=== PATIENT | male | born 1945 | race Caucasian/White ===

== ENCOUNTER 2019-03-25 11:35 | Inpatient (IN) ==
[2019-03-25] MEDS ORDERED: NORMAL SALINE 1,000 ML IV ONE ×2 (11:58→13:48)
[2019-03-25] MEDS ORDERED: PANTOPRAZOLE SODIUM 40 MG/100 ML PIGGYBACK IV ONE (11:58)
[2019-03-25 12:22] LABS: Hematocrit 24.5 % (42.0-52.0); Hemoglobin 8.6 gm/dL (13.5-18.0); Mean Cell Volume 95.3 fl (78-100); Mean Corpuscular Hemoglobin 33.5 pg (27-31); Mean Corpuscular Hgb Conc 35.1 g/dl (32-36); Mean Platelet Volume 9.7 fl (8-11.3); Neutrophil # 8.7 K/mm3 (1.3-6.0); Neutrophil % 81.6 % (42-75.0); Platelet Count 242 K/mm3 (150-450); Red Blood Count 2.57 M/mm3 (4.7-6.0); Red Cell Distribution Width 12.2 % (11.5-14.0); White Blood Count 10.6 K/mm3 (4.0-10.5)
[2019-03-25 12:31] LABS: INR 1.01 INR (0.92-1.08)
[2019-03-25 12:43] LABS: Albumin * 3.7 gm/dl (3.4-5.0); Anion Gap 13.8 mmol/L (6.8-13.8); BUN/Creatinine Ratio 18.6 (9.0-21.6); Bilirubin, Total 0.5 mg/dL (0.0-1.1); Ca. Corrected For Albumin 8.5 mg/dL (8.4-10.2); Calcium * 8.6 mg/dL (7.9-10.9); Carbon Dioxide 28.2 mmol/L (24-32.6); Total Protein 6.3 gm/dL (6.2-8.2)
[2019-03-25 13:31] LABS: Urine Bilirubin 1 mg/dl (NEGATIVE); Urine Blood Negative /ul (NEGATIVE); Urine Ketone 5 mg/dL (NEGATIVE); Urine Nitrite Negative (NEGATIVE); Urine Protein 30 mg/dL (NEGATIVE); Urine Specific Gravity >=1.030 SP.GR. (1.005-1.030); Urine Urobilinogen Normal (NORMAL); Urine pH 5.5 pH (5.0-7.0)
[2019-03-25 13:45] LABS: Urine Appearance Slightly Cloudy (CLEAR); Urine Bacteria TRACE; Urine Color Amber; Urine Hyaline Cast >25 /LPF; Urine RBC 0-5 /hpf (0-5); Urine Renal Epithelial Cell Few - 1+ /hpf; Urine WBC 0-5 /hpf (0-5)
--- NOTE | 2019-03-25 14:21 | ERNOTE ---
GI Bleeding/Rectal Pain ER Date of Service: 03/25/19 Presenting Symptoms: rectal bleeding Time Seen by Provider: 03/25/19 11:52 Source: patient Exam Limitations: dementia Immunizations: IMMUNIZATION HX Immunizations Up to Date Yes History of Influenza Vaccine Yes Hx Pneumococcal Vaccination No Allergies/Adverse Reactions: Allergies iodine Allergy (Mild, Verified 03/25/19 12:29) Itching lorazepam [From Ativan] Adverse Reaction (Intermediate, Verified 03/25/19 12:29) Other hallucinations Home Medications: HOME MEDICATIONS Acetaminophen [Tylenol] 500 mg PO Q6H PRN 03/25/19 [Last Taken Unknown] Aspirin 81 mg PO DAILY 03/25/19 [Last Taken Unknown] Carbidopa/Levodopa [Carbidopa-Levodopa 25-250 Tab] 1 ea PO BID 03/25/19 [Last Taken Unknown] Cholecalciferol (Vitamin D3) [Vitamin D3] 2,000 unit PO DAILY 03/25/19 [Last Taken Unknown] Donepezil HCl [Aricept] 10 mg PO HS 03/25/19 [Last Taken Unknown] Felodipine [Felodipine ER] 10 mg PO DAILY 03/25/19 [Last Taken Unknown] Folic Acid 1 mg PO DAILY 03/25/19 [Last Taken Unknown] Indapamide 1.25 mg PO DAILY 03/25/19 [Last Taken Unknown] Lisinopril [Prinivil] 25 mg PO DAILY 03/25/19 [Last Taken Unknown] Melatonin 1 mg PO DAILY 03/25/19 [Last Taken Unknown] Multivit-Mins/Iron/Folic/Lycop [Centrum Men's Tablet] 1 ea PO DAILY 03/25/19 [Last Taken Unknown] Pantoprazole Sodium [Protonix] 40 mg PO DAILY 03/25/19 [Last Taken Unknown] Sucralfate [Carafate] 1 gm PO QID 03/25/19 [Last Taken Unknown] Thiamine HCl [B-1] 100 mg PO DAILY 03/25/19 [Last Taken Unknown] traMADol HCL [Tramadol HCl] 50 mg PO Q6H PRN 03/25/19 [Last Taken Unknown] traZODone HCL [Trazodone HCl] 50 mg PO HS 03/25/19 [Last Taken Unknown] Narrative: patient presents to the ED with . He has been having blood in the stool. This has been going on for a couple of days, BPB and dark stool. He was seen at the [place] [facility] 2 days ago and had HGB 12.1. Today saw Dr Cha and had HGB 8 and was sent here. No vomiting of blood. Has been more confused. No abdominal pain. No fever. He has dementia at baseline that complicates history. Last colonoscopy by report 3 years ago. Denies pain or symptoms right now. Timing: constant Quality/Severity: Present: moderate Nausea/Vomiting: Present: blood Abdominal Pain: Present: none Rectal Bleeding: Present: without stool Associated Symptoms: Reports: black stools. Denies: rectal pain Prior Treament: Reports: recently seen Review of Systems - Review of Systems Constitutional: Absent: fever EYE: Present: no symptoms reported ENT: Absent: sore throat Respiratory: Absent: shortness of breath Cardiology: Absent: chest pain Gastrointestinal/Abdominal: Absent: abdominal pain Genitourinary: Absent: dysuria All Other Systems: All systems neg except as marked Medical History (Last Reviewed 03/25/19 @ 14:15 by Schuyler Billings MD) Hypertension Lewy body dementia Parkinson disease Prostate cancer Surgical History: Surgical History (Last Reviewed 03/25/19 @ 14:15 by Schuyler Billings MD) History of prostatectomy Family History: Family History (Last Reviewed 03/25/19 @ 14:15 by Schuyler Billings MD) Father Myocardial infarction Mother Myocardial infarction Social History: (Last Reviewed 03/25/19 @ 14:15 by Schuyler Billings MD) Social History: household members: spouse parent marital status: current occupational status: employed, retired current occupation: [employer] Highest education level completed: 12th grade, no diploma Tobacco: Smoking Status: Never smoker Alcohol: alcohol intake: never Substance Use: substance use type: does not use Physical Exam - Physical Exam General Appearance: Present: alert, no apparent distress Head Exam: Present: normal inspection, no evidence of injury Eye Exam: Normal inspection: bilateral, PERRL: bilateral Ears, Nose, Throat: Present: normal ENT inspection Neck: Present: normal inspection Respiratory: Present: no respiratory distress, normal breath sounds, no accessory muscle use, lungs clear Cardiovascular/Chest: Present: regular rate, rhythm, normal peripheral pulses Gastrointestinal/Abdominal: Present: normal bowel sounds, nontender, nondistended, soft Rectal Exam: Present: other - No hemorrhoid. Gross blood on RATNA. No masses Back Exam: Absent: CVA tenderness (R), CVA tenderness (L) Extremity Exam: Present: normal range of motion Neurological Exam: Present: alert, no motor/sensory deficits Skin Exam: Present: normal color, warm/dry Progress - Results and Orders Patient's Lab Results:: I have reviewed the patient's lab results. - Vital Signs Patient's Vital Signs:: I have reviewed the patient's vital signs. Vital Signs: Vital Signs 03/25/19 11:53 03/25/19 12:19 03/25/19 12:41 Temperature 36.9 C Pulse Rate 85 87 80 Respiratory Rate 14 14 Blood Pressure 119/59 100/57 O2 Sat by Pulse Oximetry 100 99 03/25/19 13:00 03/25/19 13:30 Temperature Pulse Rate 82 77 Respiratory Rate 12 12 Blood Pressure 133/62 120/55 O2 Sat by Pulse Oximetry 99 98 - Progress/Reassessment Chief Complaint: Rectal Bleeding Progress Note-Subjective: 03/25/19 14:16 IV fluids and IV protonix given. No indication for acute transfusion at this point. Discussed with Dr Goldsmith. He will admit. agreeable. I discussed warning signs and reasons to return as well as the need for close f/u. Departure Clinical Impression: Anemia, GI bleeding - Departure Disposition: Still a patient Condition: Fair
[2019-03-25] MEDS ORDERED: HALOPERIDOL 5 MG TABLET PO PRN (16:26)
[2019-03-25] MEDS: CARBIDOPA/LEVODOPA 25/250 1 TAB TABLET PO SCH (17:19)
[2019-03-25] MEDS ORDERED: QUEtiapine FUMARATE 25 MG TABLET PO ONE ×2 (18:11→21:33)
[2019-03-25 18:23] LABS: Mean Corpuscular Hemoglobin 32.9 pg (27-31); Mean Corpuscular Hgb Conc 34.6 g/dl (32-36); Mean Platelet Volume 10.5 fl (8-11.3); Platelet Count 203 K/mm3 (150-450); Red Blood Count 2.22 M/mm3 (4.7-6.0); Red Cell Distribution Width 12.3 % (11.5-14.0); White Blood Count 10.5 K/mm3 (4.0-10.5)
[2019-03-25 18:25] LABS: Hemoglobin 7.3 gm/dL (13.5-18.0)
[2019-03-25 18:26] LABS: Hematocrit 21.1 % (42.0-52.0)
[2019-03-25] MEDS: traZODone HCL 50 MG TABLET PO SCH (20:27)
--- NOTE | 2019-03-25 22:31 | HP ---
Chief Complaint - Chief Complaint Date of Service: 03/25/19 Time of Service: 17:00 Chief Complaint: Blood in stool, altered mental status History of Present Illness: Gunnar is a 73 yo male with history of Lewy Body Dementia diagnosed ab out 2 years ago. His reports his dementia has been well controlled and he works and has no disability. She reports that two days ago he first noted blood in the stool and it has persisted. Today he began having confusion and behavior disturbances. He does not sit still and is confused as to what is going on. She reports he acted this was when he was first diagnosed with Lewy Body. She reports a couple weeks ago he started taking meloxicam for an injury. Since the blood in the stool started they have stopped the meloxicam suspecting he was a bleeding ulcer. He has not vomited blood. He has not complained about significant abdominal pain. He currently denies pain although he is very difficult to redirect. He is up and down in bed and has some paranoia. Medical History (Last Reviewed 03/25/19 @ 15:30 by Danae Hernandez RN) Hypertension Lewy body dementia Parkinson disease Prostate cancer Surgical History: Surgical History (Last Reviewed 03/25/19 @ 15:30 by Danae Hernandez RN) History of prostatectomy Family History: Family History (Last Reviewed 03/25/19 @ 15:30 by Danae Hernandez RN) Father Myocardial infarction Mother Myocardial infarction Social History: (Last Reviewed 03/25/19 @ 15:30 by Danae Hernandez RN) Social History: household members: spouse parent marital status: current occupational status: employed, retired current occupation: [employer] Highest education level completed: 12th grade, no diploma Tobacco: Smoking Status: Never smoker Alcohol: alcohol intake: never Substance Use: substance use type: does not use Review Of Systems (GEN) - Review of Systems Generalized/Overall Review: Present: Weakness. Absent: Chills, Fever EENTM: Present: No Symptoms Reported Respiratory: Absent: Cough, Shortness of Breath Cardiac: Absent: Chest Pain, Edema, Palpitations, Syncope Abdominal: Present: Nausea, Melena. Absent: Vomiting, Hematemesis, Abdominal Pain, Constipation, Diarrhea Genitourinary: Present: No Symptoms Reported Musculoskeletal: Present: No Symptoms Reported Neurological: Present: Other - confusion, behavior disturbance, restlessness Skin: Present: No Symptoms Reported Endocrine: Present: No Symptoms Reported Immunizations: IMMUNIZATION HX Immunizations Up to Date Yes History of Influenza Vaccine Yes Hx Pneumococcal Vaccination No Allergies/Adverse Reactions: Allergies Allergy/AdvReac Type Severity Reaction Status Date / Time iodine Allergy Mild Itching Verified 03/25/19 15:30 lorazepam [From Ativan] AdvReac Intermediate Other Verified 03/25/19 15:30 Home Medications: HOME MEDICATIONS Acetaminophen [Tylenol] 500 mg PO Q6H PRN 03/25/19 [Last Taken Unknown] Aspirin 81 mg PO DAILY 03/25/19 [Last Taken Unknown] Carbidopa/Levodopa [Carbidopa-Levodopa 25-250 Tab] 1 ea PO TID 03/25/19 [Last Taken Unknown] Cholecalciferol (Vitamin D3) [Vitamin D3] 2,000 unit PO DAILY 03/25/19 [Last Taken Unknown] Felodipine [Felodipine ER] 10 mg PO DAILY 03/25/19 [Last Taken Unknown] Folic Acid 1 mg PO DAILY 03/25/19 [Last Taken Unknown] Indapamide 1.25 mg PO DAILY 03/25/19 [Last Taken Unknown] Lisinopril [Prinivil] 40 mg PO DAILY 03/25/19 [Last Taken Unknown] Melatonin 1 mg PO DAILY 03/25/19 [Last Taken Unknown] Meloxicam 7.5 mg PO DAILY 03/25/19 [Last Taken Unknown] Multivit-Mins/Iron/Folic/Lycop [Centrum Men's Tablet] 1 ea PO DAILY 03/25/19 [Last Taken Unknown] Pantoprazole Sodium [Protonix] 40 mg PO BID 03/25/19 [Last Taken Unknown] Polyethylene Glycol 3350 [Miralax] 17 gm PO DAILY 03/25/19 [Last Taken Unknown] Thiamine HCl [B-1] 100 mg PO DAILY 03/25/19 [Last Taken Unknown] Vitamin B Complex 100 No.2 [Balanced B-100] 100 mg PO DAILY 03/25/19 [Last Taken Unknown] traZODone HCL [Trazodone HCl] 50 mg PO HS 03/25/19 [Last Taken Unknown] Exam - Exam Vital Signs: Vital Signs - Last Taken Temp 37.0 C 03/25/19 20:24 Pulse 84 03/25/19 20:24 Resp 16 03/25/19 20:24 BP 119/56 03/25/19 20:24 Pulse Ox 97 03/25/19 20:24 Constitutional: Present: Alert. Absent: Oriented x3, Cooperative ENT Exam: Present: hearing grossly normal Eye Exam: bilateral eye: normal inspection Respiratory: Present: lungs clear, normal breath sounds Cardiovascular/Chest: Present: regular rate, rhythm, no edema, no murmur Peripheral Pulses: radial (R): 2+, radial (L): 2+ Abdomen: Present: Normal bowel sounds, soft, nontender, nondistended, no rebound tenderness, no hepatospenomegaly, no masses. Absent: tender, guarding Extremity: Present: normal inspection, normal capillary refill Skin Exam: Present: normal color, warm/dry, no cyanosis Neurologic: Present: alert, disoriented x 3 Eye contact: Present: uncooperative Thoughts: Present: paranoid Diagnostic Studies: Abnormal Lab Results 03/25/19 03/25/19 03/25/19 Range/Units 12:18 12:18 12:18 WBC 10.6 H (4.0-10.5) K/mm3 RBC 2.57 L (4.7-6.0) M/mm3 Hgb 8.6 L (13.5-18.0) gm/dL Hct 24.5 L (42.0-52.0) % MCH 33.5 H (27-31) pg Immature Gran # (Auto) 0.04 H (0.000-0.0310) K/mm3 Neutrophils % 81.6 H (42-75.0) % Lymphocytes % 9.7 L (20-51) % Neutrophils # 8.7 H (1.3-6.0) K/mm3 Lymphocytes # 1.03 L (1.5-3.5) k/mm3 BUN 24 H (6-23) mg/dL Est GFR (Non-Af Amer) 58 L (60-130) mL/min Random Glucose 141 H (70-110) mg/dL Urine Protein (NEGATIVE) mg/dL Urine Bilirubin (NEGATIVE) mg/dl Ur Renal Epithelial Cell (NONE) /hpf Hyaline Casts (NONE) /LPF Stool Occult Blood Crossmatch See Detail 03/25/19 03/25/19 03/25/19 Range/Units 13:00 13:23 18:20 WBC (4.0-10.5) K/mm3 RBC 2.22 L (4.7-6.0) M/mm3 Hgb 7.3 L* (13.5-18.0) gm/dL Hct 21.1 L* (42.0-52.0) % MCH 32.9 H (27-31) pg Immature Gran # (Auto) (0.000-0.0310) K/mm3 Neutrophils % (42-75.0) % Lymphocytes % (20-51) % Neutrophils # (1.3-6.0) K/mm3 Lymphocytes # (1.5-3.5) k/mm3 BUN (6-23) mg/dL Est GFR (Non-Af Amer) (60-130) mL/min Random Glucose (70-110) mg/dL Urine Protein 30 H (NEGATIVE) mg/dL Urine Bilirubin 1 H (NEGATIVE) mg/dl Ur Renal Epithelial Cell Few - 1+ H (NONE) /hpf Hyaline Casts >25 H (NONE) /LPF Stool Occult Blood Positive H Crossmatch Laboratory Results WBC 10.5 K/mm3 (4.0-10.5) 03/25/19 18:20 RBC 2.22 M/mm3 (4.7-6.0) L 03/25/19 18:20 Hgb 7.3 gm/dL (13.5-18.0) L* 03/25/19 18:20 Hct 21.1 % (42.0-52.0) L* 03/25/19 18:20 MCV 95.0 fl (78-100) 03/25/19 18:20 MCH 32.9 pg (27-31) H 03/25/19 18:20 MCHC 34.6 g/dl (32-36) 03/25/19 18:20 RDW 12.3 % (11.5-14.0) 03/25/19 18:20 Plt Count 203 K/mm3 (150-450) 03/25/19 18:20 MPV 10.5 fl (8-11.3) 03/25/19 18:20 Immature Gran % (Auto) 0.40 % (0.001-0.429) 03/25/19 12:18 Immature Gran # (Auto) 0.04 K/mm3 (0.000-0.0310) H 03/25/19 12:18 Neutrophils % 81.6 % (42-75.0) H 03/25/19 12:18 Lymphocytes % 9.7 % (20-51) L 03/25/19 12:18 Monocytes % 8.0 % (0.0-9) 03/25/19 12:18 Eosinophils % 0.0 % (0.0-3.0) 03/25/19 12:18 Basophils % 0.3 % (0.0-1.0) 03/25/19 12:18 Nucleated RBC % 0.0 k/mm3 (0-1) 03/25/19 12:18 Neutrophils # 8.7 K/mm3 (1.3-6.0) H 03/25/19 12:18 Lymphocytes # 1.03 k/mm3 (1.5-3.5) L 03/25/19 12:18 Monocytes # 0.9 k/mm3 (0.0-1.0) 03/25/19 12:18 Eosinophils # 0.0 k/mm3 (0.0-0.7) 03/25/19 12:18 Absolute Basophils 0.0 k/mm3 (0.0-0.1) 03/25/19 12:18 PT 10.0 Seconds (9.1-10.7) 03/25/19 12:18 INR (Anticoag Therapy) 1.01 INR (0.92-1.08) 03/25/19 12:18 Sodium 139 mmol/L (132-142) 03/25/19 12:18 Plasma Sodium 140 mmol/L (130-142) 03/25/19 12:18 Potassium 4.0 mmol/L (3.4-4.6) 03/25/19 12:18 Chloride 101 mmol/L (97-106) 03/25/19 12:18 Carbon Dioxide 28.2 mmol/L (24-32.6) 03/25/19 12:18 Anion Gap 13.8 mmol/L (6.8-13.8) 03/25/19 12:18 BUN 24 mg/dL (6-23) H 03/25/19 12:18 Creatinine 1.29 mg/dL (0.4-1.4) 03/25/19 12:18 Est GFR (Non-Af Amer) 58 mL/min (60-130) L 03/25/19 12:18 BUN/Creatinine Ratio 18.6 (9.0-21.6) 03/25/19 12:18 Random Glucose 141 mg/dL (70-110) H 03/25/19 12:18 Calcium 8.6 mg/dL (7.9-10.9) 03/25/19 12:18 Calcium Adj for Albumin 8.5 mg/dL (8.4-10.2) 03/25/19 12:18 Total Bilirubin 0.5 mg/dL (0.0-1.1) 03/25/19 12:18 AST 13 U/L (0-48) 03/25/19 12:18 ALT 21 U/L (19-67) 03/25/19 12:18 Alkaline Phosphatase 54 U/L (50-170) 03/25/19 12:18 Ammonia Less than 17.0 mcmol/L (11-35) 03/25/19 12:18 Total Protein 6.3 gm/dL (6.2-8.2) 03/25/19 12:18 Albumin 3.7 gm/dl (3.4-5.0) 03/25/19 12:18 Urine Color Lyn 03/25/19 13:00 Urine Appearance Slightly cloudy (CLEAR) 03/25/19 13:00 Urine pH 5.5 pH (5.0-7.0) 03/25/19 13:00 Ur Specific [place] >=1.030 SP.GR. (1.005-1.030) 03/25/19 13:00 Urine Protein 30 mg/dL (NEGATIVE) H 03/25/19 13:00 Urine Glucose (UA) Negative mg/dL (NEGATIVE) 03/25/19 13:00 Urine Ketones 5 mg/dL (NEGATIVE) 03/25/19 13:00 Urine Blood Negative /ul (NEGATIVE) 03/25/19 13:00 Urine Nitrate Negative (NEGATIVE) 03/25/19 13:00 Urine Bilirubin 1 mg/dl (NEGATIVE) H 03/25/19 13:00 Urine Ictotest Negative (NEGATIVE) 03/25/19 13:00 Prot Sulfosalicylic Acd 1+ mg/dL (0) 03/25/19 13:00 Urine Urobilinogen Normal EU/dl (NORMAL) 03/25/19 13:00 Ur Leukocyte Esterase Negative /ul (NEGATIVE) 03/25/19 13:00 Urine RBC 0-5 /hpf (0-5) 03/25/19 13:00 Urine WBC 0-5 /hpf (0-5) 03/25/19 13:00 Ur Epithelial Cells 0-5 /hpf (0-5) 03/25/19 13:00 Ur Renal Epithelial Cell Few - 1+ /hpf (NONE) H 03/25/19 13:00 Urine Bacteria Trace (NONE) 03/25/19 13:00 Hyaline Casts >25 /LPF (NONE) H 03/25/19 13:00 Urine Culture Comments No culture indicated 03/25/19 13:00 Stool Occult Blood Positive H 03/25/19 13:23 Blood Type O Positive 03/25/19 12:18 Antibody Screen Negative 03/25/19 12:18 Crossmatch See Detail 03/25/19 12:18 Assessment/Plan - Narrative Narrative: Gunnar is a 73 yo male with suspected upper GI bleed due to gastric ulcer, secondary to use of meloxicam. He is NPO with IV protonix 40mg q12hr. Will perform serial hemograms and transfuse blood prn based on criteria for transfusion. If bleeding does not appear to be improving will need to consult General Surgery for EGD vs bleeding scan. Will admit to observation at this time. If hemoglobin is stable he may be discharged to home with continued PPI treatment. He also has acute delirium due to exacerbation of lewy body dementia. I suspect it is secondary to the medical stressors. Will treat with seroquel prn for behavioral disturbance. - Assessment/Plan (1) GI bleeding Problem: Acute Qualifiers: GI bleed type/associated pathology: gastric ulcer Qualified Code(s): K25.4 - Chronic or unspecified gastric ulcer with hemorrhage (2) Lewy body dementia with behavioral disturbance Problem: Acute
[2019-03-25] MEDS: PANTOPRAZOLE SODIUM 40 MG in NORMAL SALINE 100 ML IV SCH (23:56)
[2019-03-26 05:18] LABS: Hemoglobin 8.1 gm/dL (13.5-18.0)
[2019-03-26 05:21] LABS: Hematocrit 23.6 % (42.0-52.0)
[2019-03-26] MEDS: CARBIDOPA/LEVODOPA 25/250 1 TAB TABLET PO SCH ×3 (08:45→21:48)
[2019-03-26 10:37] LABS: Mean Cell Volume 91.2 fl (78-100); Mean Corpuscular Hemoglobin 31.6 pg (27-31); Mean Corpuscular Hgb Conc 34.6 g/dl (32-36); Mean Platelet Volume 10.1 fl (8-11.3); Platelet Count 168 K/mm3 (150-450); Red Cell Distribution Width 13.6 % (11.5-14.0); White Blood Count 7.9 K/mm3 (4.0-10.5)
[2019-03-26 10:43] LABS: Hemoglobin 7.9 gm/dL (13.5-18.0)
[2019-03-26 10:45] LABS: Hematocrit 22.8 % (42.0-52.0)
[2019-03-26] MEDS: PANTOPRAZOLE SODIUM 40 MG in NORMAL SALINE 100 ML IV SCH ×2 (11:47→23:40)
[2019-03-26 15:47] LABS: Hematocrit 27.3 % (42.0-52.0); Hemoglobin 9.5 gm/dL (13.5-18.0); Mean Cell Volume 91.6 fl (78-100); Mean Corpuscular Hemoglobin 31.9 pg (27-31); Mean Corpuscular Hgb Conc 34.8 g/dl (32-36); Mean Platelet Volume 9.7 fl (8-11.3); Platelet Count 243 K/mm3 (150-450); Red Blood Count 2.98 M/mm3 (4.7-6.0); Red Cell Distribution Width 13.8 % (11.5-14.0); White Blood Count 11.4 K/mm3 (4.0-10.5)
[2019-03-26] MEDS ORDERED: QUEtiapine FUMARATE 25 MG TABLET PO ONE (16:42)
[2019-03-26] MEDS ORDERED: SODIUM, POTASSIUM,MAG SULFATES 1 KIT KIT PO ONE (17:00)
[2019-03-26] MEDS: traZODone HCL 50 MG TABLET PO SCH (21:49)
[2019-03-26 22:01] LABS: Hemoglobin 8.3 gm/dL (13.5-18.0); Mean Cell Volume 91.2 fl (78-100); Mean Corpuscular Hemoglobin 31.9 pg (27-31); Platelet Count 187 K/mm3 (150-450); Red Cell Distribution Width 13.8 % (11.5-14.0); White Blood Count 10.4 K/mm3 (4.0-10.5)
[2019-03-26 22:19] LABS: Hematocrit 23.7 % (42.0-52.0)
--- NOTE | 2019-03-26 23:26 | PN ---
Subjective - Date and Time Seen Date: 03/26/19 Time: 09:30 Subjective Narrative: Denies abdominal pain, nausea, or vomiting. Nursing reports maroon bloody stools with clots. Objective - Vitals Vitals: Last Vital Signs Temp 37.4 C 03/26/19 22:56 Pulse 94 03/26/19 22:56 Resp 24 H 03/26/19 22:56 BP 126/49 03/26/19 22:56 Pulse Ox 96 03/26/19 22:56 - Abnormal Lab Findings Abnormal Lab Findings: Abnormal Lab Results 03/25/19 03/26/19 03/26/19 Range/Units 12:18 04:55 10:23 WBC (4.0-10.5) K/mm3 RBC 2.50 L (4.7-6.0) M/mm3 Hgb 8.1 L 7.9 L* (13.5-18.0) gm/dL Hct 23.6 L* 22.8 L* (42.0-52.0) % MCH 31.6 H (27-31) pg Crossmatch See Detail 03/26/19 03/26/19 Range/Units 15:44 21:57 WBC 11.4 H D (4.0-10.5) K/mm3 RBC 2.98 L 2.60 L (4.7-6.0) M/mm3 Hgb 9.5 L 8.3 L (13.5-18.0) gm/dL Hct 27.3 L 23.7 L* (42.0-52.0) % MCH 31.9 H 31.9 H (27-31) pg Crossmatch - Exam Constitutional: Present: Alert Respiratory: Present: lungs clear, normal breath sounds Cardiovascular/Chest: Present: regular rate, rhythm, no murmur Abdomen: Present: Normal bowel sounds, soft, nontender, nondistended Assessment/Plan Plan Narrative: Continues to have bloody stools and hemoglobin dropped this morning after blood transfusion. Will admit to inapatient due to continued bleeding dispite observation. Will get nuclear bleeding scan and consult surgery for consideration of upper and lower endoscopy. Continue IV protonix - Problems/Diagnosis (1) GI bleeding Problem: Acute Qualifiers: GI bleed type/associated pathology: gastric ulcer Qualified Code(s): K25.4 - Chronic or unspecified gastric ulcer with hemorrhage (2) Lewy body dementia with behavioral disturbance Problem: Acute
[2019-03-27] MEDS: CARBIDOPA/LEVODOPA 25/250 1 TAB TABLET PO SCH ×3 (07:15→21:20)
[2019-03-27] MEDS: PANTOPRAZOLE SODIUM 40 MG in NORMAL SALINE 100 ML IV SCH ×2 (11:48→23:09)
--- NOTE | 2019-03-27 12:06 | ANES ---
Anesthesia Pre Procedure Eval Vitals/Labs: Last Vital Signs Temp 36.6 C 03/27/19 11:21 Pulse 78 03/27/19 11:21 Resp 18 03/27/19 11:21 BP 153/65 H 03/27/19 11:21 Pulse Ox 98 03/27/19 11:21 HOME MEDICATIONS Acetaminophen [Tylenol] 500 mg PO Q6H PRN 03/25/19 [Last Taken Unknown] Aspirin 81 mg PO DAILY 03/25/19 [Last Taken Unknown] Carbidopa/Levodopa [Carbidopa-Levodopa 25-250 Tab] 1 ea PO TID 03/25/19 [Last Taken Unknown] Cholecalciferol (Vitamin D3) [Vitamin D3] 2,000 unit PO DAILY 03/25/19 [Last Taken Unknown] Felodipine [Felodipine ER] 10 mg PO DAILY 03/25/19 [Last Taken Unknown] Folic Acid 1 mg PO DAILY 03/25/19 [Last Taken Unknown] Indapamide 1.25 mg PO DAILY 03/25/19 [Last Taken Unknown] Lisinopril [Prinivil] 40 mg PO DAILY 03/25/19 [Last Taken Unknown] Melatonin 1 mg PO DAILY 03/25/19 [Last Taken Unknown] Meloxicam 7.5 mg PO DAILY 03/25/19 [Last Taken Unknown] Multivit-Mins/Iron/Folic/Lycop [Centrum Men's Tablet] 1 ea PO DAILY 03/25/19 [Last Taken Unknown] Pantoprazole Sodium [Protonix] 40 mg PO BID 03/25/19 [Last Taken Unknown] Polyethylene Glycol 3350 [Miralax] 17 gm PO DAILY 03/25/19 [Last Taken Unknown] Thiamine HCl [B-1] 100 mg PO DAILY 03/25/19 [Last Taken Unknown] Vitamin B Complex 100 No.2 [Balanced B-100] 100 mg PO DAILY 03/25/19 [Last Taken Unknown] traZODone HCL [Trazodone HCl] 50 mg PO HS 03/25/19 [Last Taken Unknown] Allergies/Adverse Reactions: Allergies Allergy/AdvReac Type Severity Reaction Status Date / Time iodine Allergy Mild Itching Verified 03/25/19 15:30 lorazepam [From Ativan] AdvReac Intermediate Other Verified 03/25/19 15:30 - Planned Procedure Planned Procedure: GI Bleed,Anemia Medication List Reviewed:: Yes Allergies Verified: Yes Medical History (Last Reviewed 03/27/19 @ 12:02 by Mayco Loyd CRNA) Hypertension Lewy body dementia Parkinson disease Prostate cancer Surgical History (Last Reviewed 03/27/19 @ 12:02 by Mayco Loyd CRNA) History of prostatectomy Family History (Last Reviewed 03/27/19 @ 12:02 by Mayco Loyd CRNA) Father Myocardial infarction Mother Myocardial infarction - Family Anesthesia History Family History:: no untoward family reactions to anesthesia, no familial bleeding tendencies, no family history of clotting disorders, no family history of premature - Airway/Neck/Teeth Mallampatti Score: 2 Thyromental (T-M) distance: > 6 cm Mandibulo Hyoid distance: > 3 cm - Respiratory Respiratory History: sleep apnea - does not use CPAP Respiratory Physical: lungs clear Smoking Status: Former smoker - quit 55 years Sleep Apnea currently treated: Yes Sleep Apnea by current assessment: Yes Discussed Risks/Treatment of BRAD: Yes - Cardiovascular Tolerate Activity: Poor Heart Sounds: S1 & S2, Regular, Murmur - throughout precordium. - Gastrointestinal NPO since: 829 prep - Anesthesia Assessment and Plan ASA Class: PS, III Anesthesia Type Plan: MAC
[2019-03-27] MEDS ORDERED: RINGER'S SOLUTION,LACTATED 1,000 ML IV PRN (13:04)
[2019-03-27 13:31] LABS: Hematocrit 24.7 % (42.0-52.0); Hemoglobin 8.6 gm/dL (13.5-18.0); Mean Cell Volume 92.2 fl (78-100); Mean Corpuscular Hemoglobin 32.1 pg (27-31); Mean Corpuscular Hgb Conc 34.8 g/dl (32-36); Mean Platelet Volume 9.9 fl (8-11.3); Neutrophil # 6.2 K/mm3 (1.3-6.0); Neutrophil % 74.6 % (42-75.0); Platelet Count 231 K/mm3 (150-450); Red Blood Count 2.68 M/mm3 (4.7-6.0); Red Cell Distribution Width 13.9 % (11.5-14.0); White Blood Count 8.3 K/mm3 (4.0-10.5)
[2019-03-27 13:41] LABS: Albumin * 3.2 gm/dl (3.4-5.0); Anion Gap 13.9 mmol/L (6.8-13.8); BUN/Creatinine Ratio 28.9 (9.0-21.6); Bilirubin, Total 0.5 mg/dL (0.0-1.1); Ca. Corrected For Albumin 8.4 mg/dL (8.4-10.2); Calcium * 8.1 mg/dL (7.9-10.9); Carbon Dioxide 26.4 mmol/L (24-32.6); Potassium 3.3 mmol/L (3.4-4.6); Total Protein 5.6 gm/dL (6.2-8.2)
[2019-03-27] MEDS ORDERED: QUEtiapine FUMARATE 25 MG TABLET PO ONE (15:15)
[2019-03-27] MEDS ORDERED: PROPOFOL VIAL IV ONE (15:49)
--- NOTE | 2019-03-27 18:03 | ANES ---
Post Anesthesia Discharge - Transfer of Care Transfer of Care handoff given to nurse: Yes - Discharge to [facility] Discharge to [facility]-no complications/pt stable: Yes - In room comfortable.
[2019-03-27] MEDS ORDERED: QUEtiapine FUMARATE 25 MG TABLET ONE (18:38)
--- NOTE | 2019-03-27 19:16 | CONS ---
[facility] - General Date of Service: 03/27/19 Narrative: I initially saw the patient on 03/26/2019 and discussed the case with Dr. Goldsmith and briefly with the patient's on 03/26/2019 also. He was seen again with the and daughter on 03/27/2019 Source: family, RN/MD, RN notes reviewed, old records Exam Limitations: clinical condition - History of Present Illness Initial Comments: He was brought to the emergency room on 03/25/2019 for increased confusion and a history of rectal bleeding apparently for 2 days. He had had no nausea or vomiting of blood but was having maroon stools. The patient has dementia but is functional at baseline, however with his decreasing hemoglobin he has become increasingly confused and is oriented only to himself. Timing/Duration: unsure, other - noted bleeding 2 days before 04-11 Severity: moderate Associated Symptoms: other - He has not had fever or chills. He has not complained of pain Allergies/Adverse Reactions: Allergies iodine Allergy (Mild, Verified 03/25/19 15:30) Itching lorazepam [From Ativan] Adverse Reaction (Intermediate, Verified 03/25/19 15:30) Other hallucinations Home Medications: Home Medications Medication Instructions Recorded Last Taken Acetaminophen [Tylenol] 500 mg PO Q6H PRN 03/25/19 Unknown Aspirin 81 mg PO DAILY 03/25/19 Unknown Carbidopa/Levodopa 1 ea PO TID 03/25/19 Unknown [Carbidopa-Levodopa 25-250 Tab] Cholecalciferol (Vitamin D3) 2,000 unit PO DAILY 03/25/19 Unknown [Vitamin D3] Felodipine [Felodipine ER] 10 mg PO DAILY 03/25/19 Unknown Folic Acid 1 mg PO DAILY 03/25/19 Unknown Indapamide 1.25 mg PO DAILY 03/25/19 Unknown Lisinopril [Prinivil] 40 mg PO DAILY 03/25/19 Unknown Melatonin 1 mg PO DAILY 03/25/19 Unknown Meloxicam 7.5 mg PO DAILY 03/25/19 Unknown Multivit-Mins/Iron/Folic/Lycop 1 ea PO DAILY 03/25/19 Unknown [Centrum Men's Tablet] Pantoprazole Sodium [Protonix] 40 mg PO BID 03/25/19 Unknown Polyethylene Glycol 3350 [Miralax] 17 gm PO DAILY 03/25/19 Unknown Thiamine HCl [B-1] 100 mg PO DAILY 03/25/19 Unknown Vitamin B Complex 100 No.2 100 mg PO DAILY 03/25/19 Unknown [Balanced B-100] traZODone HCL [Trazodone HCl] 50 mg PO HS 03/25/19 Unknown Procedures Insertion of intraocular lens prosthesis at time of cataract extraction, one- stage (02/03/04) Phacoemulsification and aspiration of cataract (02/03/04) Transfusion of Nonautologous Red Blood Cells into Peripheral Vein, Percutaneous Approach (03/26/19) Medications - Medications Current Medications: Current Medications Carbidopa/Levodopa (Sinemet 25/250) 1 tab PO TID@0700,1400,2100 [facility] Stop: 04/24/19 18:01 Last Admin: 03/27/19 15:06 Dose: Not Given Documented by: Pantoprazole Sodium 40 mg/ (Sodium Chloride) 100 mls @ 400 mls/hr IV Q12H [facility] Stop: 04/24/19 23:31 Last Infusion: 03/27/19 12:04 Dose: Infused Documented by: Lactated Ringer's (Lactated Ringers) 1,000 mls @ 70 mls/hr IV .[id number] PRN PRN Reason: HYDRATION Stop: 04/26/19 13:05 Last Infusion: 03/27/19 18:30 Dose: Infused Documented by: Trazodone HCl (Desyrel) 50 mg PO HS [facility] Stop: 04/24/19 21:01 Last Admin: 03/26/19 21:49 Dose: Not Given Documented by: Review of Systems - Review of Systems Narrative: The patient cannot answer questions sufficiently to obtain a full review of systems. He does state that he does not hurt anywhere. The cannot provide a stooling history "he takes care of that himself". Apparently he has had a colonoscopy about 3 years ago in [place] Physical Examination - Exam Vital Signs: Vital Signs - Last Taken Temp 36.8 C 03/27/19 18:00 Pulse 82 03/27/19 18:20 Resp 16 03/27/19 18:20 BP 136/57 03/27/19 18:20 Pulse Ox 99 03/27/19 18:20 O2 Oxygen Delivery Method Nasal Cannula Constitutional: Present: Alert, Mild distress, Other - He is oriented only to himself. He is confused and somewhat agitated although does sleep for periods of time. He does not appear in pain ENT Exam: Present: normal ENT inspection Eye Exam: bilateral eye: normal inspection Neck: Present: full range of motion, normal inspection Respiratory: Present: no respiratory distress, other - Thick sputum clears with cough Cardiovascular/Chest: Present: regular rate, rhythm Abdomen: Present: soft, nontender, other - Maroon stools /Rectal: Present: Exam deferred Extremity: Present: normal range of motion, normal inspection, no calf tenderness Skin Exam: Present: pallor Neurologic: Present: shed hand II-XII nml as tested, no motor/sensory deficits Appearance: Present: other - Mildly disheveled. Agitated Eye contact: Present: other - Delusional somewhat oppositional Thoughts: Present: delusions - Results and Findings: Lab/Microbiology results last 24 hrs: Abnormal/Pending Laboratory Last 24 HRS 03/27/19 03/27/19 03/26/19 13:25 13:00 21:57 RBC 2.68 L 2.60 L Hgb 8.6 L 8.3 L Hct 24.7 L 23.7 L* MCH 32.1 H 31.9 H Immature Gran % (Auto) 0.60 H Immature Gran # (Auto) 0.05 H Lymphocytes % 14.4 L Monocytes % 9.8 H Neutrophils # 6.2 H Lymphocytes # 1.20 L Sodium 148 H Plasma Sodium 149 H Potassium 3.3 L Chloride 111 H Anion Gap 13.9 H BUN 26 H BUN/Creatinine Ratio 28.9 H Random Glucose 132 H Alkaline Phosphatase 45 L Total Protein 5.6 L Albumin 3.2 L - Assessments/Findings (1) GI bleeding Diagnosis(s): Initial suggestion was for a nuclear medicine bleeding scan which is negative for significant bleeding, and he has been hemodynamically stable. Ideally he should have both upper and lower GI endoscopy to elucidate the possible source--- his clinical condition would preclude an outpatient colon prep and so that should be done in hospital. I have discussed the situation with Dr. Goldsmith and with the patient's and daughter. They are aware of the risks of the procedures. Their questions have been answered to their apparent satisfaction and informed consent has been obtained for EGD and colonoscopy. Plan is for him to undergo EGD and colonoscopy on 03/27/2019. Prep orders were written and the procedure will be performed when his stools are clear. Problem: Acute Qualifiers: GI bleed type/associated pathology: gastric ulcer Qualified Code(s): K25.4 - Chronic or unspecified gastric ulcer with hemorrhage
--- NOTE | 2019-03-27 19:28 | OR ---
Operative Report - Dictated Report Narrative: Operative Report Date of operation: 03/27/2019 Preoperative diagnosis: GI bleeding Postoperative diagnosis: Normal esophagus and stomach (CLOtest pending). Pancolonic diverticulosis. No active bleeding site identified (The patient's ptotic stomach precluded evaluation of the duodenum without use of a colonoscope--- this was deferred unless the patient actively rebleeds). Operation: Esophagogastroscopy with biopsy for CLOtest. Colonoscopy Surgeon: Dr Ferrer Anesthesia: TAI Thomson CRNA Indications for procedure: The patient is a 73-year-old male who was brought to the emergency room for increasing confusion, anemia with evidence of GI bleeding. Initial GI bleeding scan was negative. He has undergone a Suprep bowel prep and is brought for evaluation Findings: Normal esophagus and stomach (pathology and CLOtest pending). Very ptotic stomach with looping of the endoscope precluding evaluation of the duodenum which was deferred unless needed. Severe pancolonic diverticulosis. No active bleeding site identified. Narrative of procedure: The patient was identified preoperatively, and prior to the administration of anesthetic a multidisciplinary timeout was observed EGD: With the patient in the recumbent position, a bite-block was placed, intravenous sedation was administered, and the patient's eyes covered with a towel. The flexible fiberoptic gastroscope was advanced into the posterior pharynx which appeared normal. There was very thick inspissated secretions which were suctioned and cleared prior to continuing the exam. There was no evidence of bleeding from the nasopharynx. The supraglottic larynx appeared normal. The cords appeared normal, moved well, and opposed in the midline. The scope was advanced under direct vision into the proximal esophagus which appeared normal. The esophagus appeared freely distensible with normal mucosa. The esophageal mucosa appeared normal down to the gastroesophageal junction which was sharp and noninflamed. Specifically there were no varices, no lucille esophagitis or evidence of Liz-Gomez tear. The GE junction appeared normally distensible. The scope was advanced into the stomach which was insufflated with air. The gastric mucosa appeared grossly normal including a retroflexed view of the gastric fundus. There were no ulcerations or neoplastic lesions and no site of recent bleeding was identified. The scope was redirected toward the pylorus. The pylorus appeared patent. The scope was advanced toward the pylorus however the stomach was very ptotic and despite 3 separate attempts looping of the scope precluded advancement into the duodenum. Licensed Practical Nurse Instructor biopsies of gastric mucosa obtained for CLOtest and pathology. The biopsy sites were seen to be hemostatic. The insufflated air was removed, the scope withdrawn from the patient, and this portion of the procedure terminated. COLONOSCOPY: The patient was then placed in the left lateral position, and the perineum was inspected. There was no evidence of pilonidal disease or skin breakdown. The e xternal appearance of the anus was normal. Sphincter tone was good. The flexible fiberoptic colonoscope was inserted into the rectum which was insufflated with air. The rectal mucosa and submucosal vascular pattern appeared normal, the prep was seen to be complete with only residual brown stool which could be lavage sufficient for diagnostic purposes. The scope was advanced through the sigmoid colon, which contained numerous large noninflamed diverticular openings some of which were impacted with stool. The scope was advanced up the descending colon, and around the splenic flexure where the triangular haustral architecture of the transverse colon was seen. The scope was advanced across the transverse colon, around the hepatic flexure to the cecum, where the confluence of tenia and the ileocecal valve were identified. The mucosa at this level appeared normal. The efflux from the ileocecal valve was green. The scope was then slowly withdrawn in a circular fashion so that all aspects of colonic mucosa were inspected. The colon was somewhat capacious in character but normal in course. The haustral architecture appeared well preserved throughout with no evidence of external compression. The mucosa and submucosal vascular pattern appeared normal, specifically there was no gross evidence to suggest colitis or inflammatory bowel disease and no AV malformations were seen. The diverticulosis was severe and pancolonic in distribution however more concentrated in the sigmoid colon. No polyps were encountered. No signs of active or recent bleeding were identified. The scope was gradually withdrawn to the level of the rectum. As much insufflated air as possible was removed. The scope was withdrawn from the patient and the procedure terminated. The patient tolerated the anesthetic and procedure well without complication and was transferred back to his room awake and in stable condition. RECOMMENDATION: Although the duodenum was not directly visualized, the most likely site of bleeding was from a colonic diverticulum Inspection of the duodenum would require a procedure using a colonoscope which is stiffer. This could be deferred to an outpatient procedure if deemed necessary The patient may be fed Reviewed and electronically signed
[2019-03-27] MEDS: traZODone HCL 50 MG TABLET PO SCH (21:20)
--- NOTE | 2019-03-27 23:41 | PN ---
Subjective - Date and Time Seen Date: 03/27/19 Time: 08:30 Subjective Narrative: Slept better last night with seroquel. No fever, chills, nausea, or vomiting. Reports passing a lot of gas. Bowel movements have slowed down. Currently NPO for colonoscopy and EGD later today. Objective - Vitals Vitals: Last Vital Signs Temp 36.8 C 03/27/19 18:00 Pulse 82 03/27/19 18:20 Resp 16 03/27/19 18:20 BP 136/57 03/27/19 18:20 Pulse Ox 99 03/27/19 18:20 - Abnormal Lab Findings Abnormal Lab Findings: Abnormal Lab Results 03/27/19 03/27/19 Range/Units 13:00 13:25 RBC 2.68 L (4.7-6.0) M/mm3 Hgb 8.6 L (13.5-18.0) gm/dL Hct 24.7 L (42.0-52.0) % MCH 32.1 H (27-31) pg Immature Gran % (Auto) 0.60 H (0.001-0.429) % Immature Gran # (Auto) 0.05 H (0.000-0.0310) K/mm3 Lymphocytes % 14.4 L (20-51) % Monocytes % 9.8 H (0.0-9) % Neutrophils # 6.2 H (1.3-6.0) K/mm3 Lymphocytes # 1.20 L (1.5-3.5) k/mm3 Sodium 148 H (132-142) mmol/L Plasma Sodium 149 H (130-142) mmol/L Potassium 3.3 L (3.4-4.6) mmol/L Chloride 111 H (97-106) mmol/L Anion Gap 13.9 H (6.8-13.8) mmol/L BUN 26 H (6-23) mg/dL BUN/Creatinine Ratio 28.9 H (9.0-21.6) Random Glucose 132 H (70-110) mg/dL Alkaline Phosphatase 45 L (50-170) U/L Total Protein 5.6 L (6.2-8.2) gm/dL Albumin 3.2 L (3.4-5.0) gm/dl - Exam Constitutional: Present: Alert, No distress ENT Exam: Present: hearing grossly normal Respiratory: Present: lungs clear, normal breath sounds Cardiovascular/Chest: Present: regular rate, rhythm, no murmur Abdomen: Present: Normal bowel sounds, soft, nontender, nondistended, no rebound tenderness, no hepatospenomegaly, no masses Skin Exam: Present: warm/dry, no cyanosis, pallor Lymphatic: Present: no adenopathy Assessment/Plan Plan Narrative: Hemoglobin has stablized and bloody stools are less frequent. Nuclear bleeding scan negative but will evaluate sources of bleeding with EGD and colonoscopy today. Lewy body dementia is flared up secondary to acute illness and change in environment. Seroquel is working well to help with restlessness. - Problems/Diagnosis (1) GI bleeding Problem: Acute Qualifiers: GI bleed type/associated pathology: unspecified gastrointestinal hemorrhage type Qualified Code(s): K92.2 - Gastrointestinal hemorrhage, unspecified (2) Lewy body dementia with behavioral disturbance Problem: Acute
[2019-03-28] MEDS: ACETAMINOPHEN 500 MG TABLET PO PRN ×2 (03:52→14:06)
--- NOTE | 2019-03-28 06:26 | ANES ---
Post Anesthesia Assessment - Vital Signs Vitals: Last Vital Signs Temp 37.0 C 03/28/19 03:00 Pulse 82 03/28/19 03:00 Resp 18 03/28/19 03:00 BP 144/72 03/28/19 03:00 Pulse Ox 96 03/28/19 03:00 Airway Patency: Normal - Mental Status Level Of Consciousness: Awake - Pain Level Pain Score: 0 - N/V Assessment Nausea/Vomiting Presence: None Dehydration:: No
[2019-03-28] MEDS: CARBIDOPA/LEVODOPA 25/250 1 TAB TABLET PO SCH ×4 (06:58→21:13)
[2019-03-28 09:05] LABS: Mean Cell Volume 94.2 fl (78-100); Mean Corpuscular Hemoglobin 31.8 pg (27-31); Mean Corpuscular Hgb Conc 33.8 g/dl (32-36); Mean Platelet Volume 10.1 fl (8-11.3); Platelet Count 230 K/mm3 (150-450); Red Blood Count 2.42 M/mm3 (4.7-6.0); White Blood Count 11.9 K/mm3 (4.0-10.5)
[2019-03-28 09:36] LABS: Albumin * 2.8 gm/dl (3.4-5.0); Anion Gap 7.3 mmol/L (6.8-13.8); Bilirubin, Total 0.6 mg/dL (0.0-1.1); Ca. Corrected For Albumin 8.4 mg/dL (8.4-10.2); Calcium * 7.8 mg/dL (7.9-10.9); Carbon Dioxide 29.9 mmol/L (24-32.6); Hemoglobin 7.7 gm/dL (13.5-18.0); Potassium 3.2 mmol/L (3.4-4.6); Total Protein 5.2 gm/dL (6.2-8.2)
[2019-03-28 09:37] LABS: Hematocrit 22.8 % (42.0-52.0)
[2019-03-28 09:38] LABS: Total Cells Counted 100
[2019-03-28 10:02] LABS: Atypical (Reactive) Lymph 2 % (0-2); Eosinophil 1 % (0-3); Lymphocyte 9 % (20-51); Monocyte 5 % (0-9); Neutrophil 83 % (42-75); Neutrophil # 9.9 K/mm3 (1.3-6.0)
[2019-03-28 10:03] LABS: Platelet Estimate Normal (NORMAL); RBC Morphology Normal (NORMAL)
[2019-03-28] MEDS: QUEtiapine FUMARATE 25 MG TABLET PO SCH ×2 (11:09→21:13)
[2019-03-28] MEDS: PANTOPRAZOLE SODIUM 40 MG in NORMAL SALINE 100 ML IV SCH (11:10)
[2019-03-28] MEDS ORDERED: POTASSIUM CHLORIDE 20 MEQ TABLET.SA PO ONE (13:10)
[2019-03-28] MEDS: FERROUS SULFATE 325 MG TABLET PO SCH ×2 (14:05→21:12)
[2019-03-28] MEDS: traZODone HCL 50 MG TABLET PO SCH (21:13)
--- NOTE | 2019-03-28 23:23 | PN ---
Subjective - Date and Time Seen Date: 03/28/19 Time: 16:00 Subjective Narrative: Gunnar has been calm and without significant behaviors today. Hgb in the 7s but no witnessed bleeding today. Scopes from yesterday showed no acute bleeding, but there were diverticula present. He reports no concerns today. No fever, chills, nausea, or vomiting. Objective - Vitals Vitals: Last Vital Signs Temp 36.9 C 03/28/19 22:00 Pulse 62 03/28/19 22:00 Resp 14 03/28/19 22:00 BP 150/70 H 03/28/19 22:00 Pulse Ox 97 03/28/19 22:00 - Abnormal Lab Findings Abnormal Lab Findings: Abnormal Lab Results 03/28/19 03/28/19 Range/Units 08:45 08:45 WBC 11.9 H D (4.0-10.5) K/mm3 RBC 2.42 L (4.7-6.0) M/mm3 Hgb 7.7 L* (13.5-18.0) gm/dL Hct 22.8 L* (42.0-52.0) % MCH 31.8 H (27-31) pg Neutrophils % (Manual) 83 H (42-75) % Lymphocytes % (Manual) 9 L (20-51) % Neutrophils # (Manual) 9.9 H (1.3-6.0) K/mm3 Lymphocytes # (Manual) 1.1 L (1.5-3.5) k/mm3 Potassium 3.2 L (3.4-4.6) mmol/L Chloride 107 H (97-106) mmol/L BUN 24 H (6-23) mg/dL BUN/Creatinine Ratio 25.0 H (9.0-21.6) Random Glucose 191 H D (70-110) mg/dL Calcium 7.8 L (7.9-10.9) mg/dL ALT 9 L (19-67) U/L Alkaline Phosphatase 40 L (50-170) U/L Total Protein 5.2 L (6.2-8.2) gm/dL Albumin 2.8 L (3.4-5.0) gm/dl - Exam Constitutional: Present: Alert Respiratory: Present: lungs clear, normal breath sounds Cardiovascular/Chest: Present: regular rate, rhythm, no murmur Abdomen: Present: Normal bowel sounds, soft, nontender, nondistended Skin Exam: Present: warm/dry, no cyanosis, pallor Assessment/Plan Plan Narrative: Medically doing well although weak. Will need strengthening. He is also having an exacerbation of his dementia (Lewy Body) due to acute illness and change in routine. He is improved today. The seroquel is working to keep him without significant behaviors and I believe with a routine he will return to his baseline. He is currently too weak for his to handle at home. Looking into discharge to SNF with a dementia unit. - Problems/Diagnosis (1) GI bleeding Problem: Acute Qualifiers: GI bleed type/associated pathology: unspecified gastrointestinal hemorrhage type Qualified Code(s): K92.2 - Gastrointestinal hemorrhage, unspecified (2) Lewy body dementia with behavioral disturbance Problem: Acute
[2019-03-29] MEDS: PANTOPRAZOLE SODIUM 40 MG in NORMAL SALINE 100 ML IV SCH (00:39)
[2019-03-29] MEDS: CARBIDOPA/LEVODOPA 25/250 1 TAB TABLET PO SCH ×3 (06:44→20:12)
[2019-03-29] MEDS: FERROUS SULFATE 325 MG TABLET PO SCH ×3 (08:52→16:51)
[2019-03-29] MEDS: QUEtiapine FUMARATE 25 MG TABLET PO SCH ×2 (11:57→20:12)
[2019-03-29 12:50] LABS: Hematocrit 26.6 % (42.0-52.0); Mean Corpuscular Hemoglobin 32.5 pg (27-31); Mean Corpuscular Hgb Conc 33.8 g/dl (32-36); Mean Platelet Volume 9.8 fl (8-11.3); Neutrophil # 6.6 K/mm3 (1.3-6.0); Neutrophil % 72.1 % (42-75.0); Platelet Count 264 K/mm3 (150-450); Red Blood Count 2.77 M/mm3 (4.7-6.0); Red Cell Distribution Width 14.3 % (11.5-14.0); White Blood Count 9.1 K/mm3 (4.0-10.5)
--- NOTE | 2019-03-29 13:00 | PN ---
Subjective - Date and Time Seen Date: 03/29/19 Time: 12:30 Subjective Narrative: Gunnar Elias is a 73-year-old male patient of Dr. Goldsmith who was unable to round today due to a family emergency. I am seeing Mr. Elias on Dr. Goldsmith's behalf. He is admitted for an acute GI bleed with a declining hemoglobin. Yesterday his hemoglobin was 7.7 g. Today's is still pending as I have just ordered it. The discharge plan is for him to go to [facility] living and the plan is for him to go tomorrow. He needs his medications sent to the pharmacy but the original medicines have not yet been reconciled. My exam today shows him sitting up and eating. He is alert but confused. There are no lateralizing neurological deficits. Upper endoscopy and lower endoscopy were done yesterday and were nonrevealing as to the source of bleeding. He does have some diverticular disease. By physical exam it appears his hemoglobin may be above 9 g but lab is still pending. 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 Skin: Reports: No Symptoms Reported Endocrine: Reports: No Symptoms Reported Misc: All systems neg except as marked - Vitals Vitals: Last Vital Signs Temp 36.4 C 03/29/19 10:00 Pulse 64 03/29/19 10:00 Resp 16 03/29/19 10:00 BP 101/57 03/29/19 10:00 Pulse Ox 98 03/29/19 10:00 - Exam Constitutional: Present: Alert, Cooperative, Well developed, Well nourished, No distress ENT Exam: Present: normal ENT inspection, hearing grossly normal, pharynx normal, TMs normal Neck: Present: non-tender, full range of motion, supple Breasts: Present: Exam deferred Respiratory: Present: chest non-tender, lungs clear, normal breath sounds, no respiratory distress, no accessory muscle use Cardiovascular/Chest: Present: normal peripheral pulses, regular rate, rhythm, no chest tenderness, no edema, no gallop, no JVD, no murmur, no rub Abdomen: Present: Normal bowel sounds, soft, nontender, nondistended, no rebound tenderness, no hepatospenomegaly, no masses /Rectal: Present: Exam deferred Extremity: Present: normal range of motion, non-tender, normal inspection, no pedal edema, no calf tenderness, slow capillary refill Skin Exam: Present: pallor Lymphatic: Present: no adenopathy Neurologic: Present: distance learning technician II-XII nml as tested, no motor/sensory deficits, alert, normal mood/affect Appearance: Present: appropriate appearance, impaired insight, impaired recent memory Eye contact: Present: cooperative, good eye contact, normal speech Thoughts: Present: normal thought pattern, no apparent hallucination - Syntax is poor. Speech is somewhat confabulated. Assessment/Plan Plan Narrative: 1. Check CBC and CMP now 2. Reconcile medicines and send to pharmacy in preparation for admission to [facility] tomorrow 3. Repeat CBC in the morning. - Problems/Diagnosis (1) Acute post-hemorrhagic anemia Problem: Acute (2) GI bleeding Problem: Acute Qualifiers: GI bleed type/associated pathology: unspecified gastrointestinal hemorrhage type Qualified Code(s): K92.2 - Gastrointestinal hemorrhage, unspecified (3) Lewy body dementia with behavioral disturbance Problem: Acute
[2019-03-29 13:04] LABS: Prothrombin Time (Patient) 10.1 Seconds (9.1-10.7)
[2019-03-29 13:05] LABS: INR 1.02 INR (0.92-1.08)
[2019-03-29 13:07] LABS: Albumin * 3.3 gm/dl (3.4-5.0); Anion Gap 10.4 mmol/L (6.8-13.8); BUN/Creatinine Ratio 26.1 (9.0-21.6); Bilirubin, Total 0.4 mg/dL (0.0-1.1); Ca. Corrected For Albumin 8.6 mg/dL (8.4-10.2); Calcium * 8.4 mg/dL (7.9-10.9); Potassium 3.4 mmol/L (3.4-4.6); Total Protein 6.1 gm/dL (6.2-8.2)
[2019-03-29] MEDS: traZODone HCL 50 MG TABLET PO SCH (20:11)
[2019-03-29] MEDS: PANTOPRAZOLE SODIUM 40 MG TABLET.EC PO SCH (20:11)
[2019-03-29] MEDS ORDERED: PANTOPRAZOLE SODIUM 40 MG TABLET.EC PO SCH (21:00)
[2019-03-30] MEDS: CARBIDOPA/LEVODOPA 25/250 1 TAB TABLET PO SCH ×2 (07:13→13:42)
[2019-03-30] MEDS: PANTOPRAZOLE SODIUM 40 MG TABLET.EC PO SCH (07:13)
[2019-03-30] MEDS: FERROUS SULFATE 325 MG TABLET PO SCH ×2 (09:04→12:13)
[2019-03-30] MEDS: QUEtiapine FUMARATE 25 MG TABLET PO SCH (12:13)
--- NOTE | 2019-03-30 12:42 | DS ---
(1) Acute post-hemorrhagic anemia Problem: Acute (2) GI bleeding Problem: Acute Qualifiers: GI bleed type/associated pathology: unspecified gastrointestinal hemorrhage type Qualified Code(s): K92.2 - Gastrointestinal hemorrhage, unspecified (3) Lewy body dementia with behavioral disturbance Problem: Acute (4) Acute blood loss anemia Problem: Acute Date of Discharge:: 03/30/19 Description of Stay: Gunnar Elias is a 73-year-old male patient of Dr. Goldsmith who was admitted through ER due to an acute GI bleed with anemia. He received 2 units of packed red blood cells. Hemoglobin had fallen to 7.6 on admission. Yesterday morning it was 9.0 and it has not been repeated today. His physical exam suggests that his hemoglobin is above 9 g. He is asymptomatic and there is no orthostasis. He denies any abdominal pain. He appears to be in no distress this morning. He did undergo lower and upper endoscopy which was nonrevealing for the source of bleeding. They were not able to get into the duodenum due to the anatomy. Bleeding appears to have stopped and has not had any more melena stools. Hemoglobin has stabilized as stated above. White count and platelets are normal. Gunnar also has Lewy body dementia which has progressed to the point that his can no longer care for them in their home. Arrangements have been made for him to go to [facility] assisted living. [id number] for home health: Gunnar Elias is confined to home due to advanced Lewy body dementia and poor mobility. The need for assisted is to evaluate for repeat GI bleeding, monitoring of vital signs, and education regarding GI bleeding and Lewy body dementia. The need for physical therapy is for improved mobility and gait training and improved balance. He will benefit greatly from physical therapy. The need for home health care skilled services is directly related to the time spent [id number] with the person. Procedures Performed: see notes below List Procedures: Nuclear red cell tagged imaging for GI bleeding which was nonrevealing. Upper and lower endoscopy under anesthesia. Results and Findings: Lab Pending Results 03/25/19 12:18: WBC 10.6 H, RBC 2.57 L, Hgb 8.6 L, Hct 24.5 L, MCV 95.3, MCH 33.5 H, MCHC 35.1, RDW 12.2, Plt Count 242, MPV 9.7, Immature Gran % (Auto) 0.40, Immature Gran # (Auto) 0.04 H, Neutrophils % 81.6 H, Lymphocytes % 9.7 L, Monocytes % 8.0, Eosinophils % 0.0, Basophils % 0.3, Nucleated RBC % 0.0, Neutrophils # 8.7 H, Lymphocytes # 1.03 L, Monocytes # 0.9, Eosinophils # 0.0, Absolute Basophils 0.0 03/25/19 12:18: PT 10.0, INR (Anticoag Therapy) 1.01 03/25/19 12:18: Sodium 139, Plasma Sodium 140, Potassium 4.0, Chloride 101, Carbon Dioxide 28.2, Anion Gap 13.8, BUN 24 H, Creatinine 1.29, Est GFR (Non-Af Amer) 58 L, BUN/Creatinine Ratio 18.6, Random Glucose 141 H, Calcium 8.6, Calcium Adj for Albumin 8.5, Total Bilirubin 0.5, AST 13, ALT 21, Alkaline Phosphatase 54, Total Protein 6.3, Albumin 3.7 03/25/19 12:18: Blood Type O Positive, Antibody Screen Negative, Crossmatch See Detail 03/25/19 12:18: Ammonia Less than 17.0 03/25/19 13:00: Urine Color Lyn, Urine Appearance Slightly cloudy, Urine pH 5.5, Ur Specific [place] >=1.030, Urine Protein 30 H, Urine Glucose (UA) Negative, Urine Ketones 5, Urine Blood Negative, Urine Nitrate Negative, Urine Bilirubin 1 H, Urine Ictotest Negative, Prot Sulfosalicylic Acd 1+, Urine Urobilinogen Normal, Ur Leukocyte Esterase Negative, Urine RBC 0-5, Urine WBC 0- 5, Ur Epithelial Cells 0-5, Ur Renal Epithelial Cell Few - 1+ H, Urine Bacteria Trace, Hyaline Casts >25 H, Urine Culture Comments No culture indicated 03/25/19 13:23: Stool Occult Blood Positive H 03/25/19 18:20: WBC 10.5, RBC 2.22 L, Hgb 7.3 L*, Hct 21.1 L*, MCV 95.0, MCH 32.9 H, MCHC 34.6, RDW 12.3, Plt Count 203, MPV 10.5 03/26/19 04:55: Hgb 8.1 L, Hct 23.6 L* 03/26/19 10:23: WBC 7.9 D, RBC 2.50 L, Hgb 7.9 L*, Hct 22.8 L*, MCV 91.2, MCH 31.6 H, MCHC 34.6, RDW 13.6, Plt Count 168, MPV 10.1 03/26/19 15:44: WBC 11.4 H D, RBC 2.98 L, Hgb 9.5 L, Hct 27.3 L, MCV 91.6, MCH 31.9 H, MCHC 34.8, RDW 13.8, Plt Count 243, MPV 9.7 03/26/19 21:57: WBC 10.4, RBC 2.60 L, Hgb 8.3 L, Hct 23.7 L*, MCV 91.2, MCH 31.9 H, MCHC 35.0, RDW 13.8, Plt Count 187, MPV 10.0 03/27/19 13:00: Sodium 148 H, Plasma Sodium 149 H, Potassium 3.3 L, Chloride 111 H, Carbon Dioxide 26.4, Anion Gap 13.9 H, BUN 26 H, Creatinine 0.90, Est GFR (Non-Af Amer) 88 D, BUN/Creatinine Ratio 28.9 H, Random Glucose 132 H, Calcium 8.1, Calcium Adj for Albumin 8.4, Total Bilirubin 0.5, AST 37, ALT 27, Alkaline Phosphatase 45 L, Total Protein 5.6 L, Albumin 3.2 L 03/27/19 13:25: WBC 8.3 D, RBC 2.68 L, Hgb 8.6 L, Hct 24.7 L, MCV 92.2, MCH 32.1 H, MCHC 34.8, RDW 13.9, Plt Count 231, MPV 9.9, Immature Gran % (Auto) 0.60 H, Immature Gran # (Auto) 0.05 H, Neutrophils % 74.6, Lymphocytes % 14.4 L, Monocytes % 9.8 H, Eosinophils % 0.1, Basophils % 0.5, Nucleated RBC % 0.0, Neutrophils # 6.2 H, Lymphocytes # 1.20 L, Monocytes # 0.8, Eosinophils # 0.0, Absolute Basophils 0.0 03/28/19 08:45: WBC 11.9 H D, RBC 2.42 L, Hgb 7.7 L*, Hct 22.8 L*, MCV 94.2, MCH 31.8 H, MCHC 33.8, RDW 14.0, Plt Count 230, MPV 10.1, Neutrophils % (Manual) 83 H, Lymphocytes % (Manual) 9 L, Monocytes % (Manual) 5, Eosinophils % (Manual) 1, Neutrophils # (Manual) 9.9 H, Lymphocytes # (Manual) 1.1 L, Monocytes # (Manual) 0.6, Eosinophils # (Manual) 0.1, Atypic/Reactive Lymphs 2, Platelet Estimate Normal, RBC Morphology Normal 03/28/19 08:45: Sodium 141, Plasma Sodium 142, Potassium 3.2 L, Chloride 107 H, Carbon Dioxide 29.9, Anion Gap 7.3, BUN 24 H, Creatinine 0.96, Est GFR (Non-Af Amer) 82, BUN/Creatinine Ratio 25.0 H, Random Glucose 191 H D, Calcium 7.8 L, Calcium Adj for Albumin 8.4, Total Bilirubin 0.6, AST 25, ALT 9 L, Alkaline Phosphatase 40 L, Total Protein 5.2 L, Albumin 2.8 L 03/29/19 12:45: WBC 9.1 D, RBC 2.77 L, Hgb 9.0 L, Hct 26.6 L, MCV 96.0, MCH 32.5 H, MCHC 33.8, RDW 14.3 H, Plt Count 264, MPV 9.8, Immature Gran % (Auto) 0.40, Immature Gran # (Auto) 0.04 H, Neutrophils % 72.1, Lymphocytes % 14.4 L, Monocytes % 9.8 H, Eosinophils % 3.0, Basophils % 0.3, Nucleated RBC % 0.0, Neutrophils # 6.6 H, Lymphocytes # 1.31 L, Monocytes # 0.9, Eosinophils # 0.3, Absolute Basophils 0.0 03/29/19 12:45: Sodium 142, Plasma Sodium 143 H, Potassium 3.4, Chloride 105, Carbon Dioxide 30.0, Anion Gap 10.4, BUN 23, Creatinine 0.88, Est GFR (Non-Af Amer) 90, BUN/Creatinine Ratio 26.1 H, Random Glucose 147 H, Calcium 8.4, Calcium Adj for Albumin 8.6, Total Bilirubin 0.4, AST 21, ALT 29, Alkaline Phosphatase 53, Total Protein 6.1 L, Albumin 3.3 L 03/29/19 12:45: PT 10.1, INR (Anticoag Therapy) 1.02 Discharge Location: [facility] Disposition: Home Health Service [facility] Agency: [facility] Home Health Condition: Fair Face to Face Encounter completed per CMS Guidelines: Yes - See above Discharge Activity: Activity as tolerated Discharge Diet: General/regular food Referrals: Tobias Cha MD [Primary Care Provider] - Additional Patient Instructions (free text): Medications sent to [facility] on 03/29/19 [facility] at discharge new. Please fax orders and call report upon discharge. [facility] will call you on Monday with Dr. Cha follow up appointment. Prescriptions (Any new or edited meds): Thiamine HCl [B-1] 100 mg PO DAILY #100 tab Transmission Status: Received by [facility] Vitamin B Complex 100 No.2 [Balanced B-100] 100 mg PO DAILY #100 tab Transmission Status: Received by [facility] Carbidopa/Levodopa [Carbidopa-Levodopa 25-250 Tab] 1 ea PO TID #90 tab Transmission Status: Received by [facility] Multivit-Mins/Iron/Folic/Lycop [Centrum Men's Tablet] 1 ea PO DAILY #100 tab Transmission Status: Received by [facility] Felodipine [Felodipine ER] 10 mg PO DAILY #30 tab Transmission Status: Received by [facility] Ferrous Sulfate 325 mg PO TIDWM #90 tab Transmission Status: Received by [facility] Folic Acid 1 mg PO DAILY #30 tab Transmission Status: Received by [facility] Indapamide 1.25 mg PO DAILY #30 tab Transmission Status: Received by [facility] Melatonin 1 mg PO DAILY #30 tab Transmission Status: Received by [facility] Polyethylene Glycol 3350 [Miralax] 17 gm PO DAILY #1 bottle Transmission Status: Received by [facility] Lisinopril [Prinivil] 40 mg PO DAILY #30 tab Transmission Status: Received by [facility] Pantoprazole Sodium [Protonix] 40 mg PO BID #60 tab Transmission Status: Received by [facility] QUEtiapine FUMARATE [Seroquel] 25 mg PO BID@1200,2100 #60 tab Transmission Status: Received by [facility] traZODone HCL [Trazodone HCl] 50 mg PO HS #30 tab Transmission Status: Received by [facility] Acetaminophen [Tylenol] 500 mg PO Q6H PRN #100 tab PRN Reason: Pain Transmission Status: Received by [facility] Cholecalciferol (Vitamin D3) [Vitamin D3] 2,000 unit PO DAILY #30 cap Transmission Status: Received by [facility] Complete Home Medications List: Complete Home Medication List: Acetaminophen [Tylenol] 500 mg PO Q6H PRN #100 tab 03/29/19 Carbidopa/Levodopa [Carbidopa-Levodopa 25-250 Tab] 1 ea PO TID #90 tab 03/29/19 Cholecalciferol (Vitamin D3) [Vitamin D3] 2,000 unit PO DAILY #30 cap 03/29/19 Felodipine [Felodipine ER] 10 mg PO DAILY #30 tab 03/29/19 Ferrous Sulfate 325 mg PO TIDWM #90 tab 03/29/19 Folic Acid 1 mg PO DAILY #30 tab 03/29/19 Indapamide 1.25 mg PO DAILY #30 tab 03/29/19 Lisinopril [Prinivil] 40 mg PO DAILY #30 tab 03/29/19 Melatonin 1 mg PO DAILY #30 tab 03/29/19 Multivit-Mins/Iron/Folic/Lycop [Centrum Men's Tablet] 1 ea PO DAILY #100 tab 03/29/19 Pantoprazole Sodium [Protonix] 40 mg PO BID #60 tab 03/29/19 Polyethylene Glycol 3350 [Miralax] 17 gm PO DAILY #1 bottle 03/29/19 QUEtiapine FUMARATE [Seroquel] 25 mg PO BID@1200,2100 #60 tab 03/29/19 Thiamine HCl [B-1] 100 mg PO DAILY #100 tab 03/29/19 Vitamin B Complex 100 No.2 [Balanced B-100] 100 mg PO DAILY #100 tab 03/29/19 traZODone HCL [Trazodone HCl] 50 mg PO HS #30 tab 03/29/19
[2019-03-30 15:38] VITALS: BP 140/70
== END 2019-03-30 16:07 | disposition home health service (06) | DRG 378 ==
LOC: ER 11:35 → MS 11:35
PROVIDERS: ADMIT Family Medicine; ATTEND Family Medicine
CPT/HCPCS: 36415; 78278; 80053; 81001; 82140; 82272; 85007; 85014; 85018; 85025; 85027; 85610; 86850; 87081; 96361; 96365; 96367; 99285; A9560; G0378; P9016

== ENCOUNTER 2019-04-27 14:55 | Observation (INO) ==
--- NOTE | 2019-04-27 15:15 | ERNOTE ---
Neuro HPI ER Record Presenting Symptoms: weakness, impaired speech Time Seen by Provider: 04/27/19 15:00 Source: patient, EMS Exam Limitations: no limitations Immunizations: IMMUNIZATION HX Immunizations Up to Date Yes History of Influenza Vaccine Yes Hx Pneumococcal Vaccination No Allergies/Adverse Reactions: Allergies Allergy/AdvReac Type Severity Reaction Status Date / Time iodine Allergy Mild Itching Verified 04/27/19 15:00 lorazepam [From Ativan] AdvReac Intermediate Other Verified 04/27/19 15:00 Home Medications: HOME MEDICATIONS Acetaminophen [Tylenol] 500 mg PO Q6H PRN #100 tab 03/29/19 [Last Taken Unknown] Carbidopa/Levodopa [Carbidopa-Levodopa 25-250 Tab] 1 ea PO TID #90 tab 03/29/19 [Last Taken Unknown] Cholecalciferol (Vitamin D3) [Vitamin D3] 2,000 unit PO DAILY #30 cap 03/29/19 [Last Taken Unknown] Ferrous Sulfate 325 mg PO TIDWM #90 tab 03/29/19 [Last Taken Unknown] Folic Acid 1 mg PO DAILY #30 tab 03/29/19 [Last Taken Unknown] Multivit-Mins/Iron/Folic/Lycop [Centrum Men's Tablet] 1 ea PO DAILY #100 tab 03/29/19 [Last Taken Unknown] Pantoprazole Sodium [Protonix] 40 mg PO BID #60 tab 03/29/19 [Last Taken Unknown] Polyethylene Glycol 3350 [Miralax] 17 gm PO DAILY #1 bottle 03/29/19 [Last Taken Unknown] QUEtiapine FUMARATE [Seroquel] 25 mg PO BID@1200,2100 #60 tab 03/29/19 [Last Taken Unknown] Thiamine HCl [B-1] 100 mg PO DAILY #100 tab 03/29/19 [Last Taken Unknown] Vitamin B Complex 100 No.2 [Balanced B-100] 100 mg PO DAILY #100 tab 03/29/19 [Last Taken Unknown] traZODone HCL [Trazodone HCl] 50 mg PO HS #30 tab 03/29/19 [Last Taken Unknown] Diphenoxylate HCl/Atropine [Lomotil Tablet] 1 ea PO PRN PRN 04/15/19 [Last Taken Unknown] Lisinopril [Prinivil] 20 mg PO DAILY 04/15/19 [Last Taken Unknown] Melatonin 3 mg PO DAILY 04/27/19 [Last Taken Unknown] - History of Present Illness Narrative: Approximately 2 hours prior to arrival patient had right-sided weakness and was having difficulty forming words. The symptoms have subsequently resolved. Onset: sudden onset Severity: moderate - Character of Deficits New weakness: Present: RUE, RLE, facial (rt) Additional Deficits: Present: impaired speech Baseline Cognition: Present: alert but confused, poor alertness Baseline Gait: Present: walks w/o assistance Associated Symptoms: Denies: fever/chills, sweating Review of Systems - Review of Systems Constitutional: Present: See HPI EYE: Present: no symptoms reported ENT: Present: no symptoms reported Respiratory: Present: no symptoms reported Cardiology: Present: no symptoms reported Gastrointestinal/Abdominal: Present: no symptoms reported Genitourinary: Present: no symptoms reported Musculoskeletal: Present: no symptoms reported Skin: Present: no symptoms reported, change in hair/nails Endocrine: Present: no symptoms reported Hematologic/Lymphatic: Present: no symptoms reported Psych: Present: See HPI All Other Systems: All systems neg except as marked Medical History (Last Reviewed 04/27/19 @ 15:00 by Martha Butcher RN) Hypertension Lewy body dementia Parkinson disease Prostate cancer Surgical History: Surgical History (Last Reviewed 04/27/19 @ 15:00 by Martha Butcher RN) History of prostatectomy Family History: Family History (Last Reviewed 04/27/19 @ 15:00 by Martha Butcher RN) Father Myocardial infarction Mother Myocardial infarction Social History: (Last Reviewed 04/27/19 @ 15:00 by Martha Butcher RN) Social History: household members: spouse parent marital status: current occupational status: employed, retired current occupation: [employer] Highest education level completed: 12th grade, no diploma Tobacco: Smoking Status: Former smoker, quit 55 years Alcohol: alcohol intake: never Substance Use: substance use type: does not use Physical Exam - Physical Exam General Appearance: Present: wd/wn, alert, no apparent distress Head Exam: Present: normal inspection, no evidence of injury Eye Exam: Normal inspection: bilateral, PERRL: bilateral Ears, Nose, Throat: Present: normal ENT inspection, H, normal pharynx Neck: Present: normal inspection, nontender Respiratory: Present: no respiratory distress, normal breath sounds, no acc essory muscle use, chest nontender, lungs clear Cardiovascular/Chest: Present: regular rate, rhythm, no murmur, normal peripheral pulses Gastrointestinal/Abdominal: Present: normal bowel sounds, nontender, nondistended, soft, no organomegaly Rectal Exam: Present: deferred Back Exam: Present: normal inspection, normal range of motion Extremity Exam: Present: normal inspection, non-tender, no edema, normal range of motion Neurological Exam: Present: normal mood/affect, disoriented to time, disoriented to place, disoriented to situation Skin Exam: Present: normal color, warm/dry Lymphatic Exam: Present: no adenopathy Progress - Results and Orders Patient's Lab Results:: I have reviewed the patient's lab results. - Vital Signs Patient's Vital Signs:: I have reviewed the patient's vital signs. - EKG EKG #1 EKG: NSR - X-Ray X-Ray #1 X-Ray: chest Interpretation: Reviewed by me - CT/Ultrasound CT/Ultrasound Narrative: CT of the head was reviewed by me Plan - Plan Plan: I suspect the patient had a TIA and we will admitted to [facility] for monitoring echocardiogram for carotid Dopplers and make arrangements for a possible outpatient MRI. Departure Clinical Impression: TIA (transient ischemic attack), Lewy body dementia with behavioral disturbance - Departure Disposition: Still a patient Condition: Fair Referrals: Tobias Cha MD [Primary Care Provider] -
[2019-04-27 15:20] LABS: Hemoglobin 11.3 gm/dL (13.5-18.0); Mean Corpuscular Hemoglobin 32.6 pg (27-31); Mean Corpuscular Hgb Conc 33.2 g/dl (32-36); Mean Platelet Volume 9.7 fl (8-11.3); Platelet Count 195 K/mm3 (150-450); Red Blood Count 3.47 M/mm3 (4.7-6.0); Red Cell Distribution Width 13.8 % (11.5-14.0); White Blood Count 9.1 K/mm3 (4.0-10.5)
[2019-04-27 15:30] LABS: Prothrombin Time (Patient) 10.5 Seconds (9.1-10.7)
[2019-04-27 15:31] LABS: INR 1.06 INR (0.92-1.08); Partial Thrombolplastin Time 26.8 Seconds (24-32)
[2019-04-27 15:32] LABS: Albumin * 3.6 gm/dl (3.4-5.0); Anion Gap 11.8 mmol/L (6.8-13.8); BUN/Creatinine Ratio 14.9 (9.0-21.6); Bilirubin, Total 0.5 mg/dL (0.0-1.1); Ca. Corrected For Albumin 8.1 mg/dL (8.4-10.2); Calcium * 8.1 mg/dL (7.9-10.9); Carbon Dioxide 27.8 mmol/L (24-32.6); Potassium 3.6 mmol/L (3.4-4.6); Total Protein 6.3 gm/dL (6.2-8.2)
[2019-04-27 15:43] LABS: Urine Appearance Clear (CLEAR); Urine Bilirubin Negative (NEGATIVE); Urine Blood Negative /ul (NEGATIVE); Urine Color Yellow; Urine Nitrite Negative (NEGATIVE); Urine Protein Negative (NEGATIVE); Urine Specific Gravity 1.005 SP.GR. (1.005-1.030); Urine Urobilinogen Normal (NORMAL)
[2019-04-27 15:44] LABS: Urine Bacteria None Seen; Urine Ketone 5 mg/dL (NEGATIVE); Urine RBC None Seen /hpf (0-5); Urine WBC 0-5 /hpf (0-5)
[2019-04-27] MEDS ORDERED: ASPIRIN 81 MG TAB.CHEW PO ONE (16:18)
--- NOTE | 2019-04-27 22:31 | HP ---
Chief Complaint - Chief Complaint Date of Service: 04/27/19 Time of Service: 22:30 Chief Complaint: Leaning to the right, altered mentation History of Present Illness: Gunnar is a 73 yo male with Lewy Body Dementia. He currently resides at [facility]. Today he was gradually leaning more and more to his right and appeared to be doing it involuntary. He was more confused than usual and having difficulty figuring out how to walk. He had no focal weakness and all extremities moved appropriately but he had some difficulty following commands. He presented to the [facility] ER for evaluation. Bloodwork was unremarkable. Head CT showed no acute change. Medical History (Last Reviewed 04/27/19 @ 17:10 by Angeles Gonzalez RN) Hypertension Lewy body dementia Parkinson disease Prostate cancer Surgical History: Surgical History (Last Reviewed 04/27/19 @ 17:11 by Angeles Gonzalez RN) History of prostatectomy Family History: Family History (Last Reviewed 04/27/19 @ 17:11 by Angeles Gonzalez RN) Father Myocardial infarction Mother Myocardial infarction Social History: (Last Reviewed 04/27/19 @ 17:11 by Angeles Gonzalez RN) Social History: household members: spouse parent marital status: current occupational status: employed, retired current occupation: [employer] Highest education level completed: 12th grade, no diploma Tobacco: Smoking Status: Former smoker, quit 55 years Alcohol: alcohol intake: never Substance Use: substance use type: does not use Review Of Systems (GEN) - Review of Systems Additional Comments: Unable to do ROS in patients condition. He does not answer questions with appropriate responses. Immunizations: IMMUNIZATION HX Immunizations Up to Date Yes History of Influenza Vaccine Yes Hx Pneumococcal Vaccination Yes Allergies/Adverse Reactions: Allergies Allergy/AdvReac Type Severity Reaction Status Date / Time iodine Allergy Intermediate Itching Verified 04/27/19 17:11 lorazepam [From Ativan] AdvReac Severe Other Verified 04/27/19 17:11 Home Medications: HOME MEDICATIONS Acetaminophen [Tylenol] 500 mg PO Q6H PRN #100 tab 03/29/19 [Last Taken Unknown] Carbidopa/Levodopa [Carbidopa-Levodopa 25-250 Tab] 1 ea PO TID #90 tab 03/29/19 [Last Taken Unknown] Cholecalciferol (Vitamin D3) [Vitamin D3] 2,000 unit PO DAILY #30 cap 03/29/19 [Last Taken Unknown] Ferrous Sulfate 325 mg PO TIDWM #90 tab 03/29/19 [Last Taken Unknown] Folic Acid 1 mg PO DAILY #30 tab 03/29/19 [Last Taken Unknown] Multivit-Mins/Iron/Folic/Lycop [Centrum Men's Tablet] 1 ea PO DAILY #100 tab 03/29/19 [Last Taken Unknown] Pantoprazole Sodium [Protonix] 40 mg PO BID #60 tab 03/29/19 [Last Taken Unknown] Polyethylene Glycol 3350 [Miralax] 17 gm PO DAILY #1 bottle 03/29/19 [Last Taken Unknown] Thiamine HCl [B-1] 100 mg PO DAILY #100 tab 03/29/19 [Last Taken Unknown] Vitamin B Complex 100 No.2 [Balanced B-100] 100 mg PO DAILY #100 tab 03/29/19 [Last Taken Unknown] traZODone HCL [Trazodone HCl] 50 mg PO HS #30 tab 03/29/19 [Last Taken Unknown] Diphenoxylate HCl/Atropine [Lomotil 2.5-0.025 mg Tablet] 1 ea PO PRN PRN 04/15/19 [Last Taken Unknown] Lisinopril [Prinivil] 20 mg PO DAILY 04/15/19 [Last Taken Unknown] Melatonin 3 mg PO DAILY 04/27/19 [Last Taken Unknown] Exam - Exam Vital Signs: Vital Signs - Last Taken Temp 36.7 C 04/27/19 21:49 Pulse 79 04/27/19 21:49 Resp 16 04/27/19 21:49 BP 127/73 04/27/19 21:49 Pulse Ox 97 04/27/19 21:49 Constitutional: Present: Alert, Other - restless. Absent: Oriented x3 ENT Exam: Present: hearing grossly normal Eye Exam: bilateral eye: normal inspection Respiratory: Present: lungs clear, normal breath sounds, no respiratory distress Cardiovascular/Chest: Present: regular rate, rhythm, no murmur Abdomen: Present: Normal bowel sounds, soft, nontender, nondistended Extremity: Present: normal inspection Skin Exam: Present: normal color, warm/dry, no cyanosis Neurologic: Present: abnormal gait - unable to figure out how to walk. He can move all extremities and has normal strength, but doesnt understand how to do tasks. Eye contact: Present: cooperative, good eye contact Diagnostic Studies: Abnormal Lab Results 04/27/19 04/27/19 04/27/19 Range/Units 15:14 15:14 15:14 RBC 3.47 L (4.7-6.0) M/mm3 Hgb 11.3 L (13.5-18.0) gm/dL Hct 34.0 L (42.0-52.0) % MCH 32.6 H (27-31) pg Lymphocytes % 12.0 L (20-51) % Monocytes % 9.3 H (0.0-9) % Eosinophils % 12.4 H (0.0-3.0) % Lymphocytes # 1.10 L (1.5-3.5) k/mm3 Eosinophils # 1.1 H (0.0-0.7) k/mm3 ESR 12 H (0-10) mm/hr Random Glucose 137 H (70-110) mg/dL Calcium Adj for Albumin 8.1 L (8.4-10.2) mg/dL ALT 15 L (19-67) U/L Laboratory Results WBC 9.1 K/mm3 (4.0-10.5) 04/27/19 15:14 RBC 3.47 M/mm3 (4.7-6.0) L 04/27/19 15:14 Hgb 11.3 gm/dL (13.5-18.0) L 04/27/19 15:14 Hct 34.0 % (42.0-52.0) L 04/27/19 15:14 MCV 98.0 fl (78-100) 04/27/19 15:14 MCH 32.6 pg (27-31) H 04/27/19 15:14 MCHC 33.2 g/dl (32-36) 04/27/19 15:14 RDW 13.8 % (11.5-14.0) 04/27/19 15:14 Plt Count 195 K/mm3 (150-450) 04/27/19 15:14 MPV 9.7 fl (8-11.3) 04/27/19 15:14 Immature Gran % (Auto) 0.20 % (0.001-0.429) 04/27/19 15:14 Immature Gran # (Auto) 0.02 K/mm3 (0.000-0.0310) 04/27/19 15:14 Neutrophils % 66.0 % (42-75.0) 04/27/19 15:14 Lymphocytes % 12.0 % (20-51) L 04/27/19 15:14 Monocytes % 9.3 % (0.0-9) H 04/27/19 15:14 Eosinophils % 12.4 % (0.0-3.0) H 04/27/19 15:14 Basophils % 0.1 % (0.0-1.0) 04/27/19 15:14 Nucleated RBC % 0.0 k/mm3 (0-1) 04/27/19 15:14 Neutrophils # 6.0 K/mm3 (1.3-6.0) 04/27/19 15:14 Lymphocytes # 1.10 k/mm3 (1.5-3.5) L 04/27/19 15:14 Monocytes # 0.9 k/mm3 (0.0-1.0) 04/27/19 15:14 Eosinophils # 1.1 k/mm3 (0.0-0.7) H 04/27/19 15:14 Absolute Basophils 0.0 k/mm3 (0.0-0.1) 04/27/19 15:14 ESR 12 mm/hr (0-10) H 04/27/19 15:14 PT 10.5 Seconds (9.1-10.7) 04/27/19 15:14 INR (Anticoag Therapy) 1.06 INR (0.92-1.08) 04/27/19 15:14 PTT ([place]) 26.8 Seconds (24-32) 04/27/19 15:14 Sodium 140 mmol/L (132-142) 04/27/19 15:14 Plasma Sodium 141 mmol/L (130-142) 04/27/19 15:14 Potassium 3.6 mmol/L (3.4-4.6) 04/27/19 15:14 Chloride 104 mmol/L (97-106) 04/27/19 15:14 Carbon Dioxide 27.8 mmol/L (24-32.6) 04/27/19 15:14 Anion Gap 11.8 mmol/L (6.8-13.8) 04/27/19 15:14 BUN 15 mg/dL (6-23) 04/27/19 15:14 Creatinine 1.01 mg/dL (0.4-1.4) 04/27/19 15:14 Est GFR (Non-Af Amer) 77 mL/min (60-130) 04/27/19 15:14 BUN/Creatinine Ratio 14.9 (9.0-21.6) 04/27/19 15:14 Random Glucose 137 mg/dL (70-110) H 04/27/19 15:14 Calcium 8.1 mg/dL (7.9-10.9) 04/27/19 15:14 Calcium Adj for Albumin 8.1 mg/dL (8.4-10.2) L 04/27/19 15:14 Total Bilirubin 0.5 mg/dL (0.0-1.1) 04/27/19 15:14 AST 14 U/L (0-48) 04/27/19 15:14 ALT 15 U/L (19-67) L 04/27/19 15:14 Alkaline Phosphatase 75 U/L (50-170) 04/27/19 15:14 Total Protein 6.3 gm/dL (6.2-8.2) 04/27/19 15:14 Albumin 3.6 gm/dl (3.4-5.0) 04/27/19 15:14 Urine Color Yellow 04/27/19 15:30 Urine Appearance Clear (CLEAR) 04/27/19 15:30 Urine pH 6.0 pH (5.0-7.0) 04/27/19 15:30 Ur Specific [place] 1.005 SP.GR. (1.005-1.030) 04/27/19 15:30 Urine Protein Negative mg/dL (NEGATIVE) 04/27/19 15:30 Urine Glucose (UA) Negative mg/dL (NEGATIVE) 04/27/19 15:30 Urine Ketones 5 mg/dL (NEGATIVE) 04/27/19 15:30 Urine Blood Negative /ul (NEGATIVE) 04/27/19 15:30 Urine Nitrate Negative (NEGATIVE) 04/27/19 15:30 Urine Bilirubin Negative mg/dl (NEGATIVE) 04/27/19 15:30 Urine Urobilinogen Normal EU/dl (NORMAL) 04/27/19 15:30 Ur Leukocyte Esterase Negative /ul (NEGATIVE) 04/27/19 15:30 Urine RBC None seen /hpf (0-5) 04/27/19 15:30 Urine WBC 0-5 /hpf (0-5) 04/27/19 15:30 Ur Epithelial Cells 0-5 /hpf (0-5) 04/27/19 15:30 Urine Bacteria None seen (NONE) 04/27/19 15:30 Urine Culture Comments No culture indicated 04/27/19 15:30 Assessment/Plan - Narrative Narrative: Gunnar is a 73 yo male with chronic lewy body dementia with acute right sided leaning today and worsening of his confusion. CT was negative for stroke. Right sided leaning has resolved. He is a little more confused than normal per his family but that is hard for me to ascertain. Will admit to observation. Unable to get a MRI on the weekend but I have concerns that he would not be able to tolerate an MRI and that it would not help in his treatment. He has a history of GI bleed and I am cautious to start him on blood thinners. - Assessment/Plan (1) TIA (transient ischemic attack) Problem: Acute (2) Lewy body dementia with behavioral disturbance Problem: Chronic
--- NOTE | 2019-04-28 13:47 | DS ---
Date of Discharge:: 04/28/19 Hospital Course: Gunnar is a 73 yo male with Lewy Body Dementia who was admitted yesterday due to sudden right sided leaning. This was not usual for him and he also had worsening confusion. He was evaluated in the ER and no acute abnormalities were found and his right sided leaning resolved with continued worsened altered mentation. He was admitted to observation to monitor. Overnight he did not sleep well and was very restless which is not unusual for his Lewy Body Dementia. He had no focal muscular weakness. He does continue to have confusion and difficulty walking because he does not understand how to walk at times. At other times he can walk without difficulty. I believe this to be more of a symptom of his dementia which may be exacerbated due to his change in environment. I discussed with his the possibility of doing an MRI but her concern and mine is that he would need sedation and that the medication needed to sedate him may worsen his dementia. The results of the MRI are not likely to change his care plan. She is ok with him returning to [facility] today as he has no obvious signs of stroke and head CT showed no evidence of stroke. She does request outpatient home health with PT with [facility]. She also requested a letter about him returning to work. I will write a letter stating that he is not able to return to work at this time. This may be permanent but time will tell if there is any improvement in his cognitive function. With possible TIA there is consideration for starting aspirin, but he also has a history of GI bleed and I am not certain that this was a TIA vs related to his LB Dementia. I will not start aspirin at this time, but it could be considered in the future if he is having more episodes consistent with TIA. Procedures Performed: none Results and Findings: Lab Pending Results 04/27/19 15:14: WBC 9.1, RBC 3.47 L, Hgb 11.3 L, Hct 34.0 L, MCV 98.0, MCH 32.6 H, MCHC 33.2, RDW 13.8, Plt Count 195, MPV 9.7, Immature Gran % (Auto) 0.20, Immature Gran # (Auto) 0.02, Neutrophils % 66.0, Lymphocytes % 12.0 L, Monocytes % 9.3 H, Eosinophils % 12.4 H, Basophils % 0.1, Nucleated RBC % 0.0, Neutrophils # 6.0, Lymphocytes # 1.10 L, Monocytes # 0.9, Eosinophils # 1.1 H, Absolute Basophils 0.0 04/27/19 15:14: ESR 12 H 04/27/19 15:14: PT 10.5, INR (Anticoag Therapy) 1.06, PTT ([place]) 26.8 04/27/19 15:14: Sodium 140, Plasma Sodium 141, Potassium 3.6, Chloride 104, Carbon Dioxide 27.8, Anion Gap 11.8, BUN 15, Creatinine 1.01, Est GFR (Non-Af Amer) 77, BUN/Creatinine Ratio 14.9, Random Glucose 137 H, Calcium 8.1, Calcium Adj for Albumin 8.1 L, Total Bilirubin 0.5, AST 14, ALT 15 L, Alkaline Phosphatase 75, Total Protein 6.3, Albumin 3.6 04/27/19 15:30: Urine Color Yellow, Urine Appearance Clear, Urine pH 6.0, Ur Specific [place] 1.005, Urine Protein Negative, Urine Glucose (UA) Negative, Urine Ketones 5, Urine Blood Negative, Urine Nitrate Negative, Urine Bilirubin N egative, Urine Urobilinogen Normal, Ur Leukocyte Esterase Negative, Urine RBC None seen, Urine WBC 0-5, Ur Epithelial Cells 0-5, Urine Bacteria None seen, Urine Culture Comments No culture indicated Discharge Location: [facility] Disposition: Home Health Service Home Health Agency: [facility] - with PT and OT Condition: Poor Face to Face Encounter completed per [facility] Guidelines: Yes Discharge Activity: Activity as tolerated Discharge Diet: General/regular food Referrals: Tobias Cha MD [Primary Care Provider] - Problem Oriented Discharge Instructions to Patient/Family: Lewy Body Dementia, Transient Ischemic Attack, [id number] Complete Home Medications List: Complete Home Medication List: Acetaminophen [Tylenol] 500 mg PO Q6H PRN #100 tab 03/29/19 Carbidopa/Levodopa [Carbidopa-Levodopa 25-250 Tab] 1 ea PO TID #90 tab 03/29/19 Cholecalciferol (Vitamin D3) [Vitamin D3] 2,000 unit PO DAILY #30 cap 03/29/19 Ferrous Sulfate 325 mg PO TIDWM #90 tab 03/29/19 Folic Acid 1 mg PO DAILY #30 tab 03/29/19 Multivit-Mins/Iron/Folic/Lycop [Centrum Men's Tablet] 1 ea PO DAILY #100 tab 03/29/19 Pantoprazole Sodium [Protonix] 40 mg PO BID #60 tab 03/29/19 Polyethylene Glycol 3350 [Miralax] 17 gm PO DAILY #1 bottle 03/29/19 Thiamine HCl [B-1] 100 mg PO DAILY #100 tab 03/29/19 Vitamin B Complex 100 No.2 [Balanced B-100] 100 mg PO DAILY #100 tab 03/29/19 traZODone HCL [Trazodone HCl] 50 mg PO HS #30 tab 03/29/19 Diphenoxylate HCl/Atropine [Lomotil 2.5-0.025 mg Tablet] 1 ea PO PRN PRN 04/15/19 Lisinopril [Prinivil] 20 mg PO DAILY 04/15/19 Melatonin 3 mg PO DAILY 04/27/19
[2019-04-28 14:48] VITALS: BP 159/81
== END 2019-04-28 15:00 | disposition home health service (06) ==
LOC: MS 14:55 → ER 14:55 → MS 16:55
PROVIDERS: ADMIT Family Medicine; ATTEND Family Medicine
CPT/HCPCS: 36415; 70450; 71010; 71045; 80053; 81001; 85025; 85610; 85652; 85730; 87081; 93005; 99284; 99285; G0378